=== PATIENT | male | born 1965 | race Caucasian/White ===

== ENCOUNTER 2017-06-01 08:22 | Emergency (ER) | payer MEDICARE ==
--- NOTE | 2017-06-01 09:04 | ED ---
General Adult HPI - General Chief complaint: Chest Pain Stated complaint: chest pain Time Seen by Provider: 06/01/17 08:36 Source: patient, RN notes reviewed, old records reviewed Mode of arrival: ambulatory Limitations: no limitations - History of Present Illness Initial comments: This is a 51-year-old male to the ER for evaluation. Patient presents here today for evaluation of chest pain. Patient is history of high blood pressure cholesterol, patient coming with 2 days of anterior chest pain. Pain is nonspecific in nature. Sharp chest pain. No shortness of breath no radiation. No episodes of diaphoresis no recent fevers cough or congestion. No recent travel history - Related Data Home Medications Medication Instructions Recorded Confirmed Allopurinol [Allopurinol] 600 mg PO DAILY 07/20/16 06/01/17 buPROPion HCL [buPROPion HCL XL] 450 mg PO DAILY 07/20/16 06/01/17 lamoTRIgine [LaMICtal] 150 mg PO BID 07/20/16 06/01/17 Atorvastatin [Lipitor] 20 mg PO DAILY 06/01/17 06/01/17 Dicyclomine [Bentyl] 20 mg PO QID 06/01/17 06/01/17 Lisinopril [Zestril] 10 mg PO DAILY 06/01/17 06/01/17 metFORMIN HCL [metFORMIN HCL ER] 1,000 mg PO BID 06/01/17 06/01/17 traZODone HCL 150 mg PO HS 06/01/17 06/01/17 Allergies Allergy/AdvReac Type Severity Reaction Status Date / Time aspirin AdvReac Severe ULCERS Verified 06/01/17 09:04 Review of Systems ROS Statement: Those systems with pertinent positive or pertinent negative responses have been documented in the HPI. ROS Other: All systems not noted in ROS Statement are negative. Past Medical History Past Medical History: Diabetes Mellitus, Hyperlipidemia, Renal Disease Additional Past Medical History / Comment(s): GOUT History of Any Multi-Drug Resistant Organisms: None Reported Past Surgical History: Hernia Repair, Orthopedic Surgery Past Psychological History: Bipolar, Depression Smoking Status: Former smoker Past Alcohol Use History: Occasional Past Drug Use History: None Reported General Exam Limitations: no limitations General appearance: alert, in no apparent distress Head exam: Present: atraumatic, normocephalic, normal inspection Eye exam: Present: normal appearance, PERRL, EOMI. Absent: scleral icterus, conjunctival injection, periorbital swelling ENT exam: Present: normal exam, mucous membranes moist Neck exam: Present: normal inspection. Absent: tenderness, meningismus, lymphadenopathy Respiratory exam: Present: normal lung sounds bilaterally. Absent: respiratory distress, wheezes, rales, rhonchi, stridor Cardiovascular Exam: Present: regular rate, normal rhythm, normal heart sounds. Absent: systolic murmur, diastolic murmur, rubs, gallop, clicks GI/Abdominal exam: Present: soft, normal bowel sounds. Absent: distended, tenderness, guarding, rebound, rigid Extremities exam: Present: normal inspection, full ROM, normal capillary refill. Absent: tenderness, pedal edema, joint swelling, calf tenderness Back exam: Present: normal inspection Neurological exam: Present: alert, oriented X3, CN II-XII intact Psychiatric exam: Present: normal affect, normal mood Skin exam: Present: warm, dry, intact, normal color. Absent: rash Course Vital Signs 06/01/17 06/01/17 06/01/17 08:33 08:55 09:55 Temperature 97.2 F L Pulse Rate 73 70 63 Respiratory 17 18 18 Rate Blood Pressure 135/95 148/98 154/94 O2 Sat by Pulse 97 95 96 Oximetry 06/01/17 06/01/17 06/01/17 10:25 10:55 11:25 Temperature Pulse Rate 62 62 62 Respiratory 18 18 18 Rate Blood Pressure 144/109 150/99 148/85 O2 Sat by Pulse 97 98 96 Oximetry - Reevaluation(s) Reevaluation #1: 06/01/17 11:46 Patient is asymptomatic, hungry, asking to eat EKG Findings - EKG Comments: EKG Findings:: EKG shows normal sinus rhythm at 67, CA 146, QRS 02, QTC 435 Medical Decision Making - Medical Decision Making 51 male the epigastric abdominal pain, cardiac enzymes are negative EKG is normal pancreas lipase is negative, otherwise lab work is normal, patient is asymptomatic and can be discharged home - Lab Data Result diagrams: 06/01/17 08:51 06/01/17 08:51 Lab Results 06/01/17 06/01/17 06/01/17 Range/Units 08:51 08:51 08:51 WBC 8.3 (3.8-10.6) k/uL RBC 5.88 (4.30-5.90) m/uL Hgb 15.9 (13.0-17.5) gm/dL Hct 50.7 (39.0-53.0) % MCV 86.2 (80.0-100.0) fL MCH 27.0 (25.0-35.0) pg MCHC 31.3 (31.0-37.0) g/dL RDW 14.5 (11.5-15.5) % Plt Count 280 (150-450) k/uL Neutrophils % 64 % Lymphocytes % 22 % Monocytes % 8 % Eosinophils % 3 % Basophils % 0 % Neutrophils # 5.3 (1.3-7.7) k/uL Lymphocytes # 1.9 (1.0-4.8) k/uL Monocytes # 0.7 (0-1.0) k/uL Eosinophils # 0.3 (0-0.7) k/uL Basophils # 0.0 (0-0.2) k/uL PT (9.0-12.0) sec INR (<1.2) APTT (22.0-30.0) sec Sodium 142 (137-145) mmol/L Potassium 4.3 (3.5-5.1) mmol/L Chloride 106 (98-107) mmol/L Carbon Dioxide 26 (22-30) mmol/L Anion Gap 10 mmol/L BUN 12 (9-20) mg/dL Creatinine 0.77 (0.66-1.25) mg/dL Est GFR (MDRD) Af Amer >60 (>60 ml/min/1.73 sqM) Est GFR (MDRD) Non-Af >60 (>60 ml/min/1.73 sqM) Glucose 112 H (74-99) mg/dL Calcium 9.5 (8.4-10.2) mg/dL Magnesium 1.7 (1.6-2.3) mg/dL Total Bilirubin 0.5 (0.2-1.3) mg/dL AST 16 L (17-59) U/L ALT 32 (21-72) U/L Alkaline Phosphatase 81 (38-126) U/L Total Creatine Kinase 42 L (55-170) U/L CK-MB (CK-2) 0.7 (0.0-2.4) ng/mL CK-MB (CK-2) Rel Index 1.7 Troponin I <0.012 (0.000-0.034) ng/mL Total Protein 6.0 L (6.3-8.2) g/dL Albumin 3.8 (3.5-5.0) g/dL Lipase 53 (23-300) U/L 06/01/17 Range/Units 08:51 WBC (3.8-10.6) k/uL RBC (4.30-5.90) m/uL Hgb (13.0-17.5) gm/dL Hct (39.0-53.0) % MCV (80.0-100.0) fL MCH (25.0-35.0) pg MCHC (31.0-37.0) g/dL RDW (11.5-15.5) % Plt Count (150-450) k/uL Neutrophils % % Lymphocytes % % Monocytes % % Eosinophils % % Basophils % % Neutrophils # (1.3-7.7) k/uL Lymphocytes # (1.0-4.8) k/uL Monocytes # (0-1.0) k/uL Eosinophils # (0-0.7) k/uL Basophils # (0-0.2) k/uL PT 10.3 (9.0-12.0) sec INR 1.0 (<1.2) APTT 23.3 (22.0-30.0) sec Sodium (137-145) mmol/L Potassium (3.5-5.1) mmol/L Chloride (98-107) mmol/L Carbon Dioxide (22-30) mmol/L Anion Gap mmol/L BUN (9-20) mg/dL Creatinine (0.66-1.25) mg/dL Est GFR (MDRD) Af Amer (>60 ml/min/1.73 sqM) Est GFR (MDRD) Non-Af (>60 ml/min/1.73 sqM) Glucose (74-99) mg/dL Calcium (8.4-10.2) mg/dL Magnesium (1.6-2.3) mg/dL Total Bilirubin (0.2-1.3) mg/dL AST (17-59) U/L ALT (21-72) U/L Alkaline Phosphatase (38-126) U/L Total Creatine Kinase (55-170) U/L CK-MB (CK-2) (0.0-2.4) ng/mL CK-MB (CK-2) Rel Index Troponin I (0.000-0.034) ng/mL Total Protein (6.3-8.2) g/dL Albumin (3.5-5.0) g/dL Lipase (23-300) U/L - Radiology Data Radiology results: report reviewed (Chest x-ray is negative for acute disease), image reviewed Disposition Clinical Impression: Gastritis Disposition: HOME SELF-CARE Condition: Good Instructions: Gastritis (ED) Referrals: Simone Aguilar III, MD [Primary Care Provider] - 1-2 days
[2017-06-01 09:16] LABS: Basophils % (A) 0 %; CH 28.2; CHCM 32.9; Eosinophils # (A) 0.3 k/uL (0-0.7); Eosinophils % (A) 3 %; HCT 50.7 % (39.0-53.0); HDW 2.54; HGB 15.9 gm/dL (13.0-17.5); Luc # (Auto) 0.19; Luc % (Auto) 2; Lymphocytes # (A) 1.9 k/uL (1.0-4.8); Lymphocytes % (A) 22 %; MCHC 31.3 g/dL (31.0-37.0); MCV 86.2 fL (80.0-100.0); Mean Platelet Volume 7.3; Monocytes # (A) 0.7 k/uL (0-1.0); Monocytes % (A) 8 %; Neutrophils # (A) 5.3 k/uL (1.3-7.7); Neutrophils % (A) 64 %; RBC 5.88 m/uL (4.30-5.90); RDW 14.5 % (11.5-15.5); WBC 8.3 k/uL (3.8-10.6); WBC (Perox) 8.32
[2017-06-01 09:19] VITALS: RESP 18
[2017-06-01 09:20] LABS: Partial Thromboplastin Time 23.3 sec (22.0-30.0); Prothrombin Time 10.3 sec (9.0-12.0)
--- NOTE | 2017-06-01 09:24 | XR ---
EXAMINATION TYPE: XR chest 2V DATE OF EXAM: 06/01/2017 COMPARISON: Chest x-ray April 09, 2015. HISTORY: Chest pain for 24 hours. TECHNIQUE: Frontal and lateral views of the chest are obtained. FINDINGS: There is no focal air space opacity, pleural effusion, or pneumothorax seen. The cardiac silhouette size is within normal limits. The osseous structures are intact. IMPRESSION: No acute process. No significant change from prior.
[2017-06-01 09:34] LABS: Creatine Kinase 42 U/L (55-170)
[2017-06-01 09:36] LABS: ALT 32 U/L (21-72); AST 16 U/L (17-59); Alkaline Phosphatase 81 U/L (38-126); Anion Gap 10 mmol/L; Blood Urea Nitrogen 12 mg/dL (9-20); Calcium 9.5 mg/dL (8.4-10.2); Carbon Dioxide 26 mmol/L (22-30); Chloride 106 mmol/L (98-107); Glucose 112 mg/dL (74-99); Magnesium 1.7 mg/dL (1.6-2.3); Non-African American GFR(MDRD) >60 (>60 ml/min/1.73 sqM); Potassium 4.3 mmol/L (3.5-5.1); Sodium 142 mmol/L (137-145); Total Bilirubin 0.5 mg/dL (0.2-1.3)
[2017-06-01 09:45] LABS: Creatine Kinase MB 0.7 ng/mL (0.0-2.4); Troponin I <0.012 ng/mL (0.000-0.034)
[2017-06-01 12:09] VITALS: BP 163/89; PULSE 76; TEMP 97.9
== END 2017-06-01 12:09 | disposition home or self-care (01) ==
LOC: EC 08:22
DX: K29.70 Gastritis, unspecified, without bleeding (principal); E11.9 Type 2 diabetes mellitus without complications; I10 Essential (primary) hypertension; E78.5 Hyperlipidemia, unspecified; M10.9 Gout, unspecified; Z87.891 Personal history of nicotine dependence; Z79.84 Long term (current) use of oral hypoglycemic drugs; Z79.899 Other long term (current) drug therapy; Z88.6 Allergy status to analgesic agent
CPT/HCPCS: 36415; 71020; 80053; 82550; 82553; 83690; 83735; 84484; 85025; 85610; 85730; 93005; 99285

== ENCOUNTER 2025-01-20 15:14 | Emergency (ER) | payer MEDICARE, OTHER ==
[2025-01-20 15:22] VITALS: TEMP 98.7
--- NOTE | 2025-01-20 15:25 | ED ---
Extremity Problem HPI - General Chief complaint: Extremity Problem,Nontraumatic Stated complaint: Right leg pain Time Seen by Provider: 01/20/25 15:23 Source: patient, EMS, RN notes reviewed Mode of arrival: EMS Limitations: no limitations - History of Present Illness Initial comments: 39-year-old male presents emergency department complaint of right leg pain, swelling and redness. Patient states it started 4 days ago. Patient denies any trauma no proximal leg pain no back pain no bowel, bladder and cons retention no saddle seizures. Patient states she is concerned about possible DVT. - Related Data Home Medications Medication Instructions Recorded Confirmed allopurinoL [Allopurinol] 600 mg PO DAILY 07/20/16 06/01/17 buPROPion HCL [buPROPion HCL XL] 450 mg PO DAILY 07/20/16 06/01/17 lamoTRIgine [LaMICtal] 150 mg PO BID 07/20/16 06/01/17 Atorvastatin [Lipitor] 20 mg PO DAILY 06/01/17 06/01/17 Dicyclomine [Bentyl] 20 mg PO QID 06/01/17 06/01/17 lisinopriL [Zestril] 10 mg PO DAILY 06/01/17 06/01/17 metFORMIN HCL [metFORMIN HCL ER] 1,000 mg PO BID 06/01/17 06/01/17 traZODone HCL 150 mg PO HS 06/01/17 06/01/17 Previous Rx's Medication Instructions Recorded Cephalexin [Keflex] 500 mg PO Q6HR #40 cap 01/20/25 Allergies Allergy/AdvReac Type Severity Reaction Status Date / Time aspirin AdvReac Severe ULCERS Verified 01/20/25 15:22 Review of Systems ROS Statement: Those systems with pertinent positive or pertinent negative responses have been documented in the HPI. ROS Other: All systems not noted in ROS Statement are negative. Past Medical History Past Medical History: Diabetes Mellitus, Hyperlipidemia, Renal Disease Additional Past Medical History / Comment(s): GOUT History of Any Multi-Drug Resistant Organisms: None Reported Past Surgical History: Hernia Repair, Orthopedic Surgery Past Psychological History: Bipolar, Depression Smoking Status: Never smoker Past Alcohol Use History: None Reported Past Drug Use History: None Reported General Exam Limitations: no limitations General appearance: alert, in no apparent distress Head exam: Present: atraumatic, normocephalic, normal inspection Respiratory exam: Present: normal lung sounds bilaterally. Absent: respiratory distress, wheezes, rales, rhonchi, stridor Cardiovascular Exam: Present: regular rate, normal rhythm, normal heart sounds. Absent: systolic murmur, diastolic murmur, rubs, gallop, clicks Extremities exam: Present: other (Right leg there is moderate swelling, mild erythema neurovascular tact right greater than left, full range of motion no proximal leg tenderness) Course Vital Signs 01/20/25 01/20/25 15:19 17:01 Temperature 98.7 F Pulse Rate 76 85 Respiratory 20 18 Rate Blood Pressure 160/103 155/99 O2 Sat by Pulse 96 98 Oximetry Medical Decision Making - Medical Decision Making Was pt. sent in by a medical professional or institution ([facility] Fischer, SUBJECT SCIENTIFIC RESEARCH, urgent care, hospital, or snf...) When possible be specific @ -No Did you speak to anyone other than the patient for history (EMS, parent, family, police, friend...)? What history was obtained from this source @ -No Did you review nursing and triage notes (agree or disagree)? Why? @ -I reviewed and agree with nursing and triage notes Were old charts reviewed (outside hosp., previous admission, EMS record, old EKG, old radiological studies, urgent care reports/EKG's, snf records)? Report findings @ -No old charts were reviewed Differential Diagnosis (chest pain, altered mental status, abdominal pain women, abdominal pain men, vaginal bleeding, weakness, fever, dyspnea, syncope, headache, dizziness, GI bleed, back pain, seizure, CVA, palpatations, mental health, musculoskeletal)? @ -DVT, cellulitis EKG interpreted by me (3pts min.). @ -None X-rays interpreted by me (1pt min.). @ -None done CT interpreted by me (1pt min.). @ -None done U/S interpreted by me (1pt. min.). @ -Ultrasound venous Doppler negative for DVT What testing was considered but not performed or refused? (CT, X-rays, U/S, labs)? Why? @ -None What meds were considered but not given or refused? Why? @ -None Did you discuss the management of the patient with other professionals (professionals i.e. [facility] Fischer, SUBJECT SCIENTIFIC RESEARCH, lab, RT, psych nurse, social media content specialist, publications editor, teacher, chief program officer, caseworker protective services)? Give summary @ -No Was smoking cessation discussed for >3mins.? @ -No Was critical care preformed (if so, how long)? @ -No Were there social determinants of health that impacted care today? How? (Homelessness, low income, unemployed, alcoholism, drug addiction, transportation, low edu. Level, literacy, decrease access to med. care, fci, rehab)? @ -No Was there de-escalation of care discussed even if they declined (Discuss DNR or withdrawal of care, Hospice)? DNR status @ -No What co-morbidities impacted this encounter? (DM, HTN, Smoking, COPD, CAD, Cancer, CVA, ARF, Chemo, Hep., AIDS, mental health diagnosis, sleep apnea, morbid obesity)? @ -None Was patient admitted / discharged? Hospital course, mention meds given and route, prescriptions, significant lab abnormalities, going to OR and other p ertinent info. @ -[Discharge patient presented for right leg swelling patient does have moderate erythema concerning for infection no DVT. Patient discharged on oral antibiotics. Undiagnosed new problem with uncertain prognosis? @ -No Drug Therapy requiring intensive monitoring for toxicity (Heparin, Nitro, Insulin, Cardizem)? @ -No Were any procedures done? @ -No Diagnosis/symptom? @ -Cellulitis leg edema Acute, or Chronic, or Acute on Chronic? @ -Acute Uncomplicated (without systemic symptoms) or Complicated (systemic symptoms)? @ -Uncomplicated Side effects of treatment? @ -No Exacerbation, Progression, or Severe Exacerbation? @ -No Poses a threat to life or bodily function? How? (Chest pain, [place], [place], pneumonia, PE, COPD, DKA, ARF, appy, cholecystitis, CVA, Diverticulitis, Homicidal, S uicidal, threat to staff... and all critical care pts) @ -No Disposition Clinical Impression: Cellulitis of right leg, Leg edema, right Disposition: HOME SELF-CARE Condition: Stable Instructions (If sedation given, give patient instructions): Cellulitis (ED) Additional Instructions: Please return to the Emergency Department if symptoms worsen or any other concerns. Prescriptions: Cephalexin [Keflex] 500 mg PO Q6HR #40 cap Is patient prescribed a controlled substance at d/c from ED?: No Referrals: Simone Aguilar III, MD [STAFF PHYSICIAN] - 1-2 days Time of Disposition: 16:35
--- NOTE | 2025-01-20 16:34 | US ---
EXAMINATION TYPE: US venous doppler duplex LE RT DATE OF EXAM: 01/20/2025 4:24 PM COMPARISON: NONE CLINICAL INDICATION: Male, 59 years old with history of pain; Pain. No redness or swelling. No hx b lood clots. Not on blood thinners. , Pain TECHNIQUE: The lower extremity deep venous system is examined utilizing real time linear array sonog erica with graded compression, color doppler sonography, and spectral doppler. SIDE PERFORMED: Right FINDINGS: VESSELS IMAGED: Common Femoral Vein Deep Femoral Vein Greater Saphenous Vein * Femoral Vein Popliteal Vein Small Saphenous Vein * Proximal Calf Veins (* superficial vessels) Right Leg: Negative for DVT, Color Doppler imaging shows patency of the vessels. Spectral waveforms are within normal limits. IMPRESSION: No ultrasound evidence for deep venous thrombosis. [facility], , 01/20/2025 4:32 PM
[2025-01-20] MEDS: IBUPROFEN 600 MG TAB PO STA (16:56)
[2025-01-20 17:03] VITALS: BP 155/99; PULSE 85; RESP 18
== END 2025-01-20 17:03 | disposition home or self-care (01) ==
LOC: EC 15:14
DX: L03.115 Cellulitis of right lower limb (principal); Z88.6 Allergy status to analgesic agent
CPT/HCPCS: 99284

== ENCOUNTER → 2025-06-05 | Outpatient (CLI) | payer MEDICARE ==
--- NOTE | 2025-06-05 10:20 | XR ---
EXAMINATION TYPE: XR knee complete LT DATE OF EXAM: 06/05/2025 10:08 AM COMPARISON: None CLINICAL INDICATION: Male, 59 years old with history of M25.562 pain OF L KNEE; PHH, pain TECHNIQUE: 3 views FINDINGS: There is prominent prepatellar soft tissue swelling measuring up to 1.5 cm thick. In origin related b efore and body seen. No underlying joint effusion. Extensor mechanism appears intact. No acute fractu re, subluxation, dislocation. IMPRESSION: 1. Focal prepatellar swelling up to 1.5 cm thick. Consider fluid distention with prepatellar bursitis . Cellulitis or contusion are also possibilities. 2. No acute osseous abnormality seen. [facility], , 06/05/2025 10:18 AM
[2025-06-05 15:59] LABS: ALT 35 U/L (10-49); AST 19 U/L (14-35); Albumin 4.4 g/dL (3.8-4.9); Albumin/Globulin Ratio 2.59 Ratio (1.60-3.17); Alkaline Phosphatase 91 U/L (41-126); Anion Gap 9.40 mmol/L (4.00-12.00); BUN/Creat Ratio 13.70 Ratio (12.00-20.00); Blood Urea Nitrogen 13.7 mg/dL (9.0-27.0); Calcium 9.5 mg/dL (8.7-10.3); Carbon Dioxide 28.6 mmol/L (21.6-31.8); Chloride 103 mmol/L (96-109); Cholesterol 135.00 mg/dL (0.00-200.00); Globulin 1.7 g/dL (1.6-3.3); Glucose 126 mg/dL (70-110); HDL Cholesterol 47.20 mg/dL (40.00-60.00); LDL Cholesterol,Calculated 58.0 mg/dL (0.0-131.0); Potassium 4.3 mmol/L (3.5-5.5); Sodium 141 mmol/L (135-145); Total Protein 6.1 g/dL (6.2-8.2); Triglycerides 149.00 mg/dL (0.00-149.00); VLDL Calculation 29.80 mg/dL (5.00-40.00)
== END | disposition home or self-care (01) ==
LOC: LABWHC1 09:35
PROVIDERS: ATTEND Student in an Organized Health Care Education/Training Program
DX: E11.22 Type 2 diabetes mellitus with diabetic chronic kidney disease (principal); N18.2 Chronic kidney disease, stage 2 (mild); M25.562 Pain in left knee
CPT/HCPCS: 36415; 80053; 80061